=== PATIENT | female | born 1990 | race Asian ===

== ENCOUNTER 2017-09-18 09:29 | Day surgery (SDC) | payer OTHER ==
[~2017-09-18] VITALS: Ht 152.4 cm; Wt 49.9 kg
[2017-09-18] MEDS ORDERED: PRON INH (10:42)
[2017-09-18] MEDS ORDERED: fentaNYL 0.05 MG/ML VIAL ONE (10:50)
[2017-09-18] MEDS ORDERED: MIDAZOLAM 2 MG/2 ML VIAL ONE (10:50)
== END 2017-09-18 12:00 | disposition home or self-care (01) ==
LOC: MMU 09:29 → MDS 09:29
PROVIDERS: ATTEND Internal Medicine Gastroenterology
DX: K21.9 Gastro-esophageal reflux disease without esophagitis (principal); Z72.89 Other problems related to lifestyle; Z87.891 Personal history of nicotine dependence; J45.909 Unspecified asthma, uncomplicated
CPT/HCPCS: 36415; 43239; 86677; J2250; J7030; J3010